=== PATIENT | female | born 1990 | race Caucasian/White ===

== ENCOUNTER 2017-07-21 22:45 | Inpatient (IN) | payer MEDICAID, OTHER ==
[~2017-07-21] VITALS: Ht 167.6 cm; Wt 117.9 kg
--- NOTE | 2017-07-21 22:56 | NUR ---
AMBULATED TO ER BED 3
[2017-07-21 23:01] VITALS: BP 134/79
[2017-07-21] MEDS ORDERED: NACL 0.9% 1,000 ML IV ONE (23:16)
--- NOTE | 2017-07-21 23:16 | NUR ---
Patient being evaluated by physician at bedside.
[2017-07-21] MEDS ORDERED: KETOROLAC 30 MG/ML VIAL IVP ONE (23:20)
[2017-07-21] MEDS ORDERED: ONDANSETRON 4 MG/2 ML VIAL IVP ONE ×2 (23:20)
[2017-07-21 23:35] LABS: BASOPHILS # (AUTO) 0.6 K/uL (0.00-0.22); EOSINOPHILS # (AUTO) 0.4 K/uL (0-0.4); HEMOGLOBIN 14.3 g/dL (12.0-16.0); LYMPHOCYTES # (AUTO) 3.4 K/uL (2.5-16.5)
[2017-07-21 23:37] LABS: APPEARANCE,URINE CLOUDY (CLEAR); BILIRUBIN,URINE NEGATIVE (NEGATIVE); BLOOD, URINE TRACE-L (NEGATIVE); COLOR,URINE YELLOW (YELLOW); LEUKOCYTE ESTERASE ,URINE NEGATIVE (NEGATIVE); NITRITE, URINE NEGATIVE (NEGATIVE); UGLUCOSE NEGATIVE (NEGATIVE)
[2017-07-21 23:39] LABS: BASOPHILS % (AUTO) 4.8 % (0.0-2.0); EOSINOPHILS % (AUTO) 2.7 % (0.0-4.0); HEMATOCRIT 42.8 % (36-48); LYMPHOCYTES % (AUTO) 25.3 % (20.5-51.1); MEAN CORPUSCULAR HEMOGLOBIN 30 pg (27-31); MEAN CORPUSCULAR HGB CONC 34 g/dL (33-37); MEAN CORPUSCULAR VOLUME 90 fL (80-94); MONOCYTES # (AUTO) 0.5 K/uL (0.8-1.0); NEUTROPHILS # (AUTO) 8.6 K/uL (1.8-7.7); NEUTROPHILS % (AUTO) 63.2 % (42.2-75.2); PLATELET COUNT (AUTO) 254 K/uL (140-450); RED BLOOD CELL COUNT(AUTO) 4.77 MIL/uL (4.20-5.40); RED CELL DISTRIBUTION WIDTH 11.8 % (11.6-13.7); WHITE BLOOD COUNT (AUTO) 13.5 K/uL (4.8-10.8)
[2017-07-21 23:48] LABS: ANION GAP 13.2 (8-16); CARBON DIOXIDE 24.4 mmol/L (21-32); CREATININE 0.9 mg/dL (0.6-1.3); POTASSIUM 3.6 mmol/L (3.5-5.1)
[2017-07-21 23:49] LABS: RBC,URINE 0-5 (RARE) /HPF (0-5); WBC,URINE 0-5 (RARE) /HPF (0-5)
[2017-07-21 23:53] LABS: ALBUMIN 3.9 g/dL (3.4-5.0); TOTAL BILIRUBIN 0.6 mg/dL (0.0-1.0)
--- NOTE | 2017-07-22 | NUR ---
26Y/F PT. PRESENTS FOR EVALUATION FOR GALL STONE. PT. WAS DIAGNOSED GALL STONE, REFERRED FOR EVALUATION FOR SX. NO MEDICAL HX. AAO X4, AMBULATORY WITH STEADY GAIT. RESPIRATIONS ROOM AIR, EVEN AND UNLBAORED. ABDOMEN SOFT AND NONDISTENDED, ACTIVE BS X4. VSS, ER MD MADE AWARE OF PT. STATUS.
[2017-07-22] MEDS ORDERED: HYDROmorphone 1 MG/ML AMP IVP ONE ×2 (00:55→04:15)
--- NOTE | 2017-07-22 01:26 | NUR ---
Patient appears to be resting comfortably in bed. Vital Signs within normal limits. Respirations even and unlabored.
--- NOTE | 2017-07-22 02:23 | NUR ---
Patient appears to be resting comfortably in bed. Vital Signs within normal limits. Respirations even and unlabored.
[2017-07-22] MEDS ORDERED: ACETAMINOPHEN 325 MG TAB PO PRN (05:25)
[2017-07-22] MEDS ORDERED: LORazepam 2 MG/ML VIAL IVP PRN (05:25)
[2017-07-22] MEDS ORDERED: ONDANSETRON 4 MG/2 ML VIAL IVP PRN (05:25)
[2017-07-22] MEDS ORDERED: HYDROmorphone 1 MG/ML AMP IVP PRN (05:25)
--- NOTE | 2017-07-22 05:50 | NUR ---
Patient will be admitted to care of DR. PLUNKETT. Admited to MED/SURG. Will go to room 121A. Belongings list completed. Report to KI HTUCHISON.
--- NOTE | 2017-07-22 05:55 | NUR ---
ADMITTED PATIENT TO THE MED-SURG UNIT. PATIENT WAS TRANSFERRED TO THE UNIT BY WHEELCHAIR, AND WALKED TO THE BED BY HERSELF. PATIENT RESTING IN BED, AWAKE ALERT ORIENTED X4, NO S/S OF ACUTE DISTRESS NOTED, RESPIRATION EVEN AND UNLABORED, FLUSHED IV WITH 10ML NS, PATENT AND INTACT. PLAN OF CARE DISCUSSED, VERBALIZED UNDERSTANDING. CALL LIGHT WITHIN REACH, SAFETY MEASURE ENSURED, WILL CONTINUE TO MONITOR.
[2017-07-22] MEDS: DEXT 5% /NACL 0.9% 1,000 ML IV SCH ×3 (06:08→23:21)
[2017-07-22 06:10] VITALS: BP 132/58
--- NOTE | 2017-07-22 07:28 | NUR ---
ENDORSED PLAN OF CARE TO DAY RN, PATIENT RESTING IN BED, NO S/S OF ACUTE DISTRESS NOTED, PATIENT IS IN STABLE CONDITION.
--- NOTE | 2017-07-22 07:29 | NUR ---
PT AWAKE AND ALERT, NO SIGNS OF ACUTE DISTRESS. BOWEL SOUNDS ACTIVE IN ALL 4 QUADRANTS, SKIN INTACT. AMBULATORY. IV PATENT AND ASYMPTOMATIC. PATIENT DENIES PAIN AT THIS TIME. ORIENTED TO HOSPITAL AND TO UNIT, PATIENT VERBALIZED UNDERSTANDING. BED IN LOW POSITION WITH BILATERAL HALF SIDE RAILS UP, CALL LIGHT WITHIN REACH. WILL CONTINUE TO MONITOR.
[2017-07-22] MEDS: ENOXAPARIN 40 MG/0.4 ML SYR SUBQ SCH (08:13)
--- NOTE | 2017-07-22 08:16 | NUR ---
PATIENT HAS BEEN SCREENED AND CATEGORIZED HIGH NUTRITION RISK. PATIENT WILL BE SEEN WITHIN 1-2 DAYS OF ADMISSION. 07/22/17-07/23/[address]
--- NOTE | 2017-07-22 09:30 | NUR ---
PATIENT SLEEPING, NO SIGNS OF ACUTE DISTRESS. BED IN LOW POSITION WITH BILATERAL HALF SIDE RAILS UP, CALL LIGHT WITHIN REACH. WILL CONTINUE TO MONITOR.
[2017-07-22] MEDS ORDERED: PIPER/TAZO 3.375GM/D5W PREMIX 50 ML IV SCH (09:32)
--- NOTE | 2017-07-22 10:20 | NUR ---
PATIENT RECEIVING HIDA SCAN AT BEDSIDE, NO SIGNS OF ACUTE DISTRESS. WILL CONTINUE TO MONITOR.
[2017-07-22] MEDS: HYDROcodone/APAP 5/325 MG 1 TAB TAB PO PRN ×2 (11:04→17:20)
--- NOTE | 2017-07-22 12:20 | NUR ---
PT IS RESTING IN BED, SPOUSE AT BEDSIDE. NO SIGNS OF ACUTE DISTRESS, BED ON LOW POSITION, BILATERAL HALF SIDE RAILS UP, CALL LIGHT WITHIN REACH. WILL CONTINUE TO MONITOR.
[2017-07-22] MEDS: metroNIDAZOLE 500 MG/NS PREMIX 100 ML IV SCH ×2 (13:14→20:33)
--- NOTE | 2017-07-22 13:24 | NUR ---
Clinical review faxed to [facility].
--- NOTE | 2017-07-22 15:47 | NUR ---
PT IS SLEEPING, SPOUSE AT BEDSIDE. SHOWING NO SIGNS OF ACUTE DISTRESS, BED IN LOW POSITION, BILATERAL HALF SIDE RAILS UP, CALL LIGHT WITHIN REACH . WILL CONTINUE TO MONITOR.
[2017-07-22 16:00] VITALS: BP 94/52
[2017-07-22] MEDS: PIPER/TAZO 3.375GM/D5W PREMIX 50 ML IV SCH ×2 (17:16→23:21)
[2017-07-22 17:20] VITALS: BP 108/58
--- NOTE | 2017-07-22 17:45 | NUR ---
PT WALKING AROUND UNIT WITH SPOUSE, NO SIGNS OF ACUTE DISTRESS. EXHIBITING STEADY GAIT.
--- NOTE | 2017-07-22 19:26 | NUR ---
ENDORSED PT TO NIGHT NURSE FOR CONTINUITY OF CARE. PT AWAKE AND ALERT, NO SIGNS OF ACUTE DISTRESS. BED IN LOW POSITION, CALL LIGHT WITHIN REACH.
--- NOTE | 2017-07-22 19:30 | NUR ---
ASSUMED CARE OF PATIENT, AWAKE, ALERT AND ORIENTED. NO COMPLAINS. CARE BOARD UPDATED. CALL LIGHT WITHIN REACH.
--- NOTE | 2017-07-22 20:00 | NUR ---
VITAL SIGNS STABLE. AFEBRILE. PLAN OF CARE DISCUSSED WITH PATIENT, VERBALIZED UNDERSTANDING WELL. CALL LIGHT WITHIN REACH. NEW IV SITE INSERTED PER PATIENT REQUEST. NPO AFTER MIDNIGHT FOR SURGERY DOM[place]O, VERBALIZED UNDERSTANDING WELL.
[2017-07-22 23:45] VITALS: BP 98/53
--- NOTE | 2017-07-22 23:53 | NUR ---
SLEEPING WELL. EASILY AROUSABLE. NO COMPLAINS. AFEBRILE. CALL LIGHT WITHIN REACH.
[2017-07-23] VITALS (7 sets, daily range): BP systolic 101–122; BP diastolic 53–61
--- NOTE | 2017-07-23 04:34 | NUR ---
NPO. NO COMPLAINS. SURGERY AT 1200. CALL LIGHT WITHIN REACH. AMBULATORY BRP.
[2017-07-23] MEDS: metroNIDAZOLE 500 MG/NS PREMIX 100 ML IV SCH ×2 (04:45→13:00)
[2017-07-23] MEDS: PIPER/TAZO 3.375GM/D5W PREMIX 50 ML IV SCH (05:54)
[2017-07-23 06:16] LABS: BASOPHILS # (AUTO) 0.2 K/uL (0.00-0.22); BASOPHILS % (AUTO) 2.9 % (0.0-2.0); EOSINOPHILS # (AUTO) 0.3 K/uL (0-0.4); EOSINOPHILS % (AUTO) 3.7 % (0.0-4.0); HEMATOCRIT 39.7 % (36-48); HEMOGLOBIN 13.6 g/dL (12.0-16.0); LYMPHOCYTES # (AUTO) 2.7 K/uL (2.5-16.5); LYMPHOCYTES % (AUTO) 32.9 % (20.5-51.1); MEAN CORPUSCULAR HEMOGLOBIN 30 pg (27-31); MEAN CORPUSCULAR HGB CONC 34 g/dL (33-37); MEAN CORPUSCULAR VOLUME 88 fL (80-94); MONOCYTES # (AUTO) 0.7 K/uL (0.8-1.0); NEUTROPHILS # (AUTO) 4.3 K/uL (1.8-7.7); NEUTROPHILS % (AUTO) 51.5 % (42.2-75.2); PLATELET COUNT (AUTO) 194 K/uL (140-450); RED CELL DISTRIBUTION WIDTH 11.5 % (11.6-13.7); WHITE BLOOD COUNT (AUTO) 8.2 K/uL (4.8-10.8)
--- NOTE | 2017-07-23 07:14 | NUR ---
ASSUMED CONTINUITY OF CARE. NO SIGNS AND SYMPTOMS OF ACUTE DISTRESS NOTED. INITIAL ASSESSMENT DONE. KEEP COMFORTABLE ON BED. EXPLAINED DIAGNOSIS, PLAN OF CARE, PAIN MANAGEMENT TEACHING, PRE-OP TEACHING, USE OF CALL LIGHT/BED/ TV/BATHROOM. VERBALIZED UNDERSTANDING. CALL LIGHT WITHIN REACH.
--- NOTE | 2017-07-23 07:14 | NUR ---
ENDORSED CARE AT BEDSIDE WITH MIKHAIL YATESN, PATIENT IN STABLE CONDITION.
[2017-07-23 07:32] LABS: ALBUMIN 3.4 g/dL (3.4-5.0); ANION GAP 13.2 (8-16); CARBON DIOXIDE 22.7 mmol/L (21-32); CREATININE 0.9 mg/dL (0.6-1.3); MAGNESIUM 1.9 mg/dL (1.8-2.4); POTASSIUM 3.9 mmol/L (3.5-5.1); TOTAL BILIRUBIN 0.9 mg/dL (0.0-1.0)
--- NOTE | 2017-07-23 08:00 | NUR ---
Patient's Plan of Care was discussed and reviewed with HEALTH NAVIGATOR: BOB ELIZONDO
[2017-07-23] MEDS: ENOXAPARIN 40 MG/0.4 ML SYR SUBQ SCH (08:47)
--- NOTE | 2017-07-23 10:22 | NUR ---
AMBULATES ON HALLWAY ACCOMPANIED BY PT. . HAD STEADY GAIT AND BALANCE. NO C/O PAIN.
[2017-07-23] MEDS ORDERED: ONDA4ODT1 SL (10:23)
--- NOTE | 2017-07-23 11:13 | NUR ---
WENT TO OR VIA GURNEY WITH OR NURSE. IN STABLE CONDITION. INFORMED CHARGE NURSE STELLA TORRES.
--- NOTE | 2017-07-23 11:19 | NUR ---
CM NOTE CONCURRENT REVIEW FAXED TO [facility] [phone]
[2017-07-23] MEDS ORDERED: PROPOFOL 200 MG/20 ML VIAL IV ONE (11:36)
[2017-07-23] MEDS ORDERED: SUCCINYLCHOLINE CHLORIDE 200 MG/10 ML VIAL IV ONE (11:36)
[2017-07-23] MEDS ORDERED: KETOROLAC 60 MG/2 ML VIAL IM ONE (11:36)
[2017-07-23] MEDS ORDERED: ONDANSETRON 4 MG/2 ML VIAL IVP ONE (11:36)
[2017-07-23] MEDS ORDERED: ROCURONIUM 50 MG/5 ML VIAL IV ONE (11:36)
[2017-07-23] MEDS ORDERED: DESFLURANE 240 ML BTL INH ONE (11:36)
[2017-07-23] MEDS ORDERED: GLYCOPYRROLATE 0.2 MG/ML VIAL IV ONE (11:36)
[2017-07-23] MEDS ORDERED: DEXAMETHASONE 4 MG/ML VIAL IVP ONE (11:36)
[2017-07-23] MEDS ORDERED: NEOSTIGMINE 1:1000 10 MG/10 ML VIAL IM ONE (11:36)
[2017-07-23] MEDS ORDERED: BUPIVACAINE-MPF 0.25% 30 ML VIAL INJ ONE (11:40)
[2017-07-23] MEDS ORDERED: LIDOCAINE 1% 50 ML ONE (11:40)
[2017-07-23] MEDS ORDERED: fentaNYL 0.05 MG/ML VIAL ONE (12:09)
[2017-07-23] MEDS ORDERED: MEPERIDINE 50 MG/ML SYR ONE (12:09)
[2017-07-23] MEDS ORDERED: MIDAZOLAM 2 MG/2 ML VIAL ONE (12:09)
[2017-07-23] MEDS ORDERED: PIPERACILLIN/TAZOBACTAM 3.375 GM VIAL IV ONE (12:10)
[2017-07-23] MEDS ORDERED: METOCLOPRAMIDE 10 MG/2 ML INJ VIAL IVP PRN (13:15)
[2017-07-23] MEDS ORDERED: MEPERIDINE 25 MG/ML SYR IVP PRN (13:15)
[2017-07-23] MEDS ORDERED: MIDAZOLAM 2 MG/2 ML VIAL IVP ONE (13:15)
[2017-07-23] MEDS ORDERED: DEXT 5% / NACL 0.45% 1,000 ML IV SCH (13:22)
[2017-07-23] MEDS ORDERED: ONDANSETRON 4 MG/2 ML VIAL IVP PRN (13:25)
[2017-07-23] MEDS ORDERED: HYDROmorphone 1 MG/ML AMP IVP PRN (13:25)
[2017-07-23] MEDS: MEPERIDINE 25 MG/ML SYR IVP PRN ×3 (13:35→14:05)
[2017-07-23] MEDS ORDERED: MEPERIDINE 25 MG/ML SYR ONE ×3 (13:44→14:10)
--- NOTE | 2017-07-23 14:15 | NUR ---
07/23/17 RD INITIAL ASSESSMENT COMPLETED PLEASE REFER TO NUTRITION ASSESSMENT UNDER CARE ACTIVITY FOR ESTIMATED NUTRITIONAL NEEDS. 1. WHEN MEDICALLY FEASIBLE INITITATE A CLEAR LIQUID DIET AND ADVANCE TO REGULAR DIET 2. PROVIDE NUTRITION EDUCATION THERAPY NEEDED 3. RD TO FOLLOW UP WITHIN 2-3 DAYS; HIGH RISK STEF ZAMORANO RD
--- NOTE | 2017-07-23 14:18 | NUR ---
CAME BACK FROM OR VIA GURNEY. NO SIGNS AND SYMPTOMS OF ACUTE DISTRESS NOTED. IN STABLE CONDITION. KEEP COMFORTABLE ON BED. EXPLAINED TO PT. AND PT. ABOUT POST-OP CARE, INCISION CARE, PAIN MANAGEMENT TEACHING, USE OF CALL LIGHT/BED/TV/BATHROOM. VERBALIZED UNDERSTANDING. CALL LIGHT WITHIN REACH.
[2017-07-23] MEDS ORDERED: CIPR500T4 PO (15:26)
--- NOTE | 2017-07-23 17:30 | NUR ---
EXPLAINED ABOUT MD D/C ORDER, D/C INSTRUCTIONS AND TEACHING, MD D/C PRESCRIPTION LIST EDUCATION, MD FOLLOW-UP, POST-OP CARE, INCISION CARE, PAIN MANAGEMENT TEACHING, DIET. VERBALIZED UNDERSTANDING.
[2017-07-23] MEDS ORDERED: PIPER/TAZO 3.375GM/D5W PREMIX 50 ML IV SCH (18:00)
--- NOTE | 2017-07-23 18:15 | NUR ---
WENT TO BATHROOM WITH ASSISTANCE FROM CHE GONZALEZ. TOLERATED WELL. NO C/O PAIN. NO SOB, NOTED. PT. VOIDED WITH MODERATE AMOUNT OF URINE OUTPUT.
[2017-07-23] MEDS ORDERED: CIPR250T6 PO (18:30)
--- NOTE | 2017-07-23 18:30 | NUR ---
REFUSED PHOTO TAKEN ON ABD INCISION. INFORMED CHARGE NURSE STELLA TORRES.
[2017-07-23] MEDS ORDERED: ONDA4TAB PO (18:33)
[2017-07-23] MEDS ORDERED: HYDR-4446 PO (18:39)
--- NOTE | 2017-07-23 18:55 | NUR ---
D/C VIA WHEELCHAIR WITH ASSISTANCE FROM SHAWN GONZALEZ. AWAKE, ALERT, AND ORIENTED X4. SPEECH CLEAR. NO C/O PAIN. NO SOB, NOTED. IN STABLE CONDITION. INFORMED CHARGE NURSE STELLA TORRES.
[2017-07-23] MEDS ORDERED: KETOROLAC 30 MG/ML VIAL IVP SCH (21:00)
== END 2017-07-23 18:55 | disposition home or self-care (01) | DRG 260 ==
LOC: MED 22:45 → MTU 07-22 05:28
PROVIDERS: ADMIT Hospitalist; ATTEND Hospitalist
PROC: 0FB14ZZ Excision of Right Lobe Liver, Percutaneous Endoscopic Approach (ICD-10-PCS; 2017-07-23)
PROC: 0DNS4ZZ (ICD-10-PCS; 2017-07-23)
PROC: 0FT44ZZ Resection of Gallbladder, Percutaneous Endoscopic Approach (ICD-10-PCS; principal; 2017-07-23 12:00)
DX: K80.00 Calculus of gallbladder with acute cholecystitis without obstruction (principal); Z68.41 Body mass index [BMI] 40.0-44.9, adult; K42.0 Umbilical hernia with obstruction, without gangrene; E66.01 Morbid (severe) obesity due to excess calories; F17.210 Nicotine dependence, cigarettes, uncomplicated; K66.0 Peritoneal adhesions (postprocedural) (postinfection); D72.829 Elevated white blood cell count, unspecified; Z90.49 Acquired absence of other specified parts of digestive tract; Z88.6 Allergy status to analgesic agent
CPT/HCPCS: 36415; 76705; 78445; 80053; 81001; 83690; 83735; 85025; 87081; 87086; 96361; 96374; 96375; 99285; J0330; J1100; J1170; J1650; J1885; J2001; J2175; J2250; J2405; J2543; J2704; J2710; J3010; J3490; J7030; J7042; Q0092